=== PATIENT | female | born 1935 | race Hispanic/Latino ===

== ENCOUNTER 2021-10-19 21:21 | Emergency (ER) | payer OTHER, MEDICARE ==
[2021-10-19] MEDS ORDERED: ONDANSETRON 4MG INJ IVP ONE (22:00)
[2021-10-19] MEDS ORDERED: ASPIRIN 325MG TAB PO ONE (22:00)
[2021-10-19] MEDS ORDERED: NITROGLYCERIN 1GM OINT 1 INCH/1GM TD ONE (22:00)
[2021-10-19 22:20] LABS: BASOPHILS % (AUTO) 0.3 % (0.0-5.0); EOSINOPHILS % (AUTO) 0.1 % (0.0-8.0); HEMATOCRIT 36.4 % (36-48); LYMPHOCYTES % (AUTO) 8.5 % (21.0-51.0); MEAN CORPUSCULAR HEMOGLOBIN 31.7 pg (27.0-33.0); MEAN CORPUSCULAR HGB CONC 33.5 g/dL (32.0-36.0); MEAN CORPUSCULAR VOLUME 94.5 fL (79-99); MONOCYTES % (AUTO) 5.5 % (3.0-13.0); NEUTROPHILS % (AUTO) 85.1 % (40.0-77.0); PLATELET COUNT (AUTO) 223 K/uL (130-400); RED BLOOD CELL COUNT(AUTO) 3.85 MIL/uL (4.00-5.50); RED CELL DISTRIBUTION WIDTH 12.7 % (11.0-15.5); WHITE BLOOD COUNT (AUTO) 15.1 K/uL (4.8-10.8)
[2021-10-19 22:37] LABS: ALBUMIN 3.7 g/dL (3.5-5.0); BILIRUBIN,TOTAL 0.4 mg/dL (0.2-1.0); CREATININE 1.3 mg/dL (0.5-1.5); POTASSIUM 3.9 mmol/L (3.5-5.1); TOTAL PROTEIN, SERUM 7.6 g/dL (6.0-8.3)
[2021-10-19 22:51] LABS: APPEARANCE,URINE CLEAR (CLEAR); BILIRUBIN,URINE NEGATIVE (NEGATIVE); COLOR,URINE YELLOW (YELLOW); GLUCOSE, URINE (UA) NEGATIVE (NEGATIVE); KETONES,URINE NEGATIVE (NEGATIVE); LEUKOCYTE ESTERASE ,URINE NEGATIVE (NEGATIVE); NITRATE,URINE NEGATIVE (NEGATIVE); OCCULT BLOOD,URINE NEGATIVE (NEGATIVE); PROTEIN,URINE NEGATIVE (NEGATIVE); UROBILINOGEN,URINE 0.2 mg/dL (0.2-1.0)
[2021-10-19 23:12] LABS: B-TYPE NATRIURETIC PEPTIDE 245 pg/mL (0-100)
[2021-10-19] MEDS ORDERED: AZITHROMYCIN 250 MG TABLET PO ONE ×2 (23:14→23:30)
[2021-10-19] MEDS ORDERED: CEFTRIAXONE 1G VIAL ONE (23:14)
[2021-10-19] MEDS ORDERED: LEVO500T90 PO (23:26)
[2021-10-19 23:27] VITALS: BP 149/75
[2021-10-19] MEDS ORDERED: CEFTRIAXONE 1G VIAL IVP ONE (23:30)
[2021-10-20] MEDS ORDERED: LOSA100T58 PO (10:18)
[2021-10-20] MEDS ORDERED: CITA-107 PO (10:18)
[2021-10-20] MEDS ORDERED: PANT40TA54 PO (10:18)
[2021-10-20] MEDS ORDERED: LEVO50CA4 PO (13:15)
[2021-10-20] MEDS ORDERED: ATOR10TA69 PO (14:04)
== END 2021-10-19 23:35 | disposition home or self-care (01) ==
LOC: EDH 21:21
DX: J18.9 Pneumonia, unspecified organism (principal); E11.65 Type 2 diabetes mellitus with hyperglycemia; I10 Essential (primary) hypertension; Z20.822 Contact with and (suspected) exposure to COVID-19; K21.9 Gastro-esophageal reflux disease without esophagitis; F32.A Depression, unspecified; Z91.14 Patient's other noncompliance with medication regimen; Z90.49 Acquired absence of other specified parts of digestive tract
CPT/HCPCS: 36415; 71045; 80053; 81003; 83880; 84484; 85025; 87635; 87804 ×2; 93005; 96374; 96375; 99285; C9803; J0696; J2405